=== PATIENT | female | born 1980 | race Caucasian/White ===

== ENCOUNTER 2025-02-22 14:05 | Emergency (ER) | payer OTHER ==
[2025-02-22] MEDS ORDERED: Ketorolac Tromethamine 30 MG (1 mL) VIAL ONE (14:55)
== END 2025-02-22 15:56 | disposition home or self-care (01) ==
LOC: CSHERS 14:05
DX: M54.12 Radiculopathy, cervical region (principal); T78.40XA Allergy, unspecified, initial encounter
CPT/HCPCS: 96372; 99283; J1885